=== PATIENT | female | born 1985 | race Caucasian/White ===

== ENCOUNTER → 2022-09-10 | Outpatient (REF) | LOC: M PLAIMG 13:21 | PROVIDERS: ATTEND Internal Medicine | DX: R52 Pain, unspecified (principal) ==

== ENCOUNTER → 2025-02-09 | Outpatient (REF) | LOC: M PLAIMG 15:42 | PROVIDERS: ATTEND Internal Medicine | DX: R52 Pain, unspecified (principal) ==